=== PATIENT | female | born 1945 | race Two or more races ===

== ENCOUNTER 2021-11-18 09:52 | Day surgery (SDC) | payer OTHER | END 2021-11-18 14:10 | disposition home or self-care (01) | LOC: AMB-ENDOS 09:52 | PROVIDERS: ATTEND Colon & Rectal Surgery | DX: K57.20 Diverticulitis of large intestine with perforation and abscess without bleeding (principal); Z93.3 Colostomy status; K64.4 Residual hemorrhoidal skin tags ==

== ENCOUNTER 2022-01-20 09:15 | Inpatient (IN) | payer OTHER ==
[~2022-01-20] VITALS: Ht 152.4 cm; Wt 58.5 kg
[2022-01-20] MEDS ORDERED: SYNTHR PO (12:29)
[2022-01-20] MEDS ORDERED: LISI PO (12:29)
[2022-01-20] MEDS ORDERED: PROAIR RESPICL90 MCG IH (12:30)
[2022-01-20] MEDS ORDERED: PROBIOT PO (12:30)
[2022-02-09] MEDS ORDERED: LEVO-T25 MCG PO (15:28)
[2022-02-09] MEDS ORDERED: PROBIOTIC250 MG PO (15:29)
[2022-02-09] MEDS ORDERED: ZESTRIL20 MG PO (15:29)
== END 2022-02-12 14:19 | disposition home or self-care (01) | DRG 330 ==
LOC: SURH 01-26 09:15 → SURG 02-09 11:46 → O/R 02-09 11:46 → SURG 02-09 18:37
PROVIDERS: ADMIT Colon & Rectal Surgery; ATTEND Colon & Rectal Surgery
PROC: 0DBP4ZZ Excision of Rectum, Percutaneous Endoscopic Approach (ICD-10-PCS; 2022-02-09)
PROC: 0DQ84ZZ Repair Small Intestine, Percutaneous Endoscopic Approach (ICD-10-PCS; 2022-02-09)
PROC: 0WQF4ZZ Repair Abdominal Wall, Percutaneous Endoscopic Approach (ICD-10-PCS; 2022-02-09)
PROC: 0DBL4ZZ Excision of Transverse Colon, Percutaneous Endoscopic Approach (ICD-10-PCS; 2022-02-09)
PROC: 0DTN4ZZ Resection of Sigmoid Colon, Percutaneous Endoscopic Approach (ICD-10-PCS; principal; 2022-02-09 12:15)
DX: K57.30 Diverticulosis of large intestine without perforation or abscess without bleeding (principal); K92.1 Melena; I10 Essential (primary) hypertension; E03.8 Other specified hypothyroidism; R59.0 Localized enlarged lymph nodes; Z20.822 Contact with and (suspected) exposure to COVID-19

== ENCOUNTER 2022-02-09 09:45 | Outpatient (CLI) | payer OTHER ==
[~2022-02-09 09:45] MED LIST: LISI PO; PROAIR RESPICL90 MCG IH; PROBIOT PO; SYNTHR PO
[2022-02-09] MEDS ORDERED: LEVO-T25 MCG PO (15:28)
[2022-02-09] MEDS ORDERED: ZESTRIL20 MG PO (15:29)
[2022-02-09] MEDS ORDERED: PROBIOTIC250 MG PO (15:29)
== END 2022-02-09 09:49 | disposition home or self-care (01) ==
LOC: LAB 09:45
PROVIDERS: ATTEND Surgery
DX: Z03.818 Encounter for observation for suspected exposure to other biological agents ruled out (principal)

== ENCOUNTER 2022-02-20 18:42 | Emergency (ER) | payer OTHER ==
[~2022-02-20] VITALS: Ht 152.4 cm; Wt 59.0 kg
[~2022-02-20 18:42] MED LIST changes: +LEVO-T25 MCG PO; +PROBIOTIC250 MG PO; +ZESTRIL20 MG PO
== END 2022-02-20 22:52 | disposition home or self-care (01) ==
LOC: ER 18:42
DX: T85.9XXA Unspecified complication of internal prosthetic device, implant and graft, initial encounter (principal); E78.00 Pure hypercholesterolemia, unspecified; I10 Essential (primary) hypertension

== ENCOUNTER 2023-08-16 05:25 | Day surgery (SDC) | payer OTHER ==
[~2023-08-16 05:25] MED LIST changes: +CRESTOR10 MG PO; +GLUMETZA500 MG PO
[2023-08-16] MEDS ORDERED: MACROBID 100 M100 MG PO (10:05)
[2023-08-16] MEDS ORDERED: TRAM1TAB98 PO (10:06)
== END 2023-08-16 14:25 | disposition home or self-care (01) ==
LOC: CIR.AMB 05:25
PROVIDERS: ATTEND Obstetrics & Gynecology Gynecology
DX: N81.6 Rectocele (principal); N81.5 Vaginal enterocele; Z20.822 Contact with and (suspected) exposure to COVID-19

== ENCOUNTER 2024-08-24 09:52 | Inpatient (IN) | payer OTHER ==
[~2024-08-24] VITALS: Ht 165.1 cm; Wt 68.9 kg
[~2024-08-24 09:52] MED LIST changes: +MACROBID 100 M100 MG PO; +TRAM1TAB98 PO
[2024-08-24] MEDS ORDERED: ROSUVASTATIN CA20 MG (10:18)
[2024-08-28] MEDS ORDERED: METRONIDAZOLE/SODIUM CHLORIDE 500 MG/100 ML PIGGYBACK IV ONE (10:30)
[2024-08-28] MEDS ORDERED: BUPIVACAINE HCL 30 ML VIAL IJ ONE (10:30)
[2024-08-28] MEDS ORDERED: CEFTRIAXONE SODIUM 2,000 MG VIAL IV ONE (10:30)
[2024-08-28] MEDS ORDERED: ONDANSETRON HCL 2 MG/ML VIAL IV PRN (11:15)
[2024-08-28] MEDS ORDERED: OxyCODONE HCL 5 MG TABLET (ROXICODONE) PO PRN (11:15)
[2024-08-28] MEDS ORDERED: MORPHINE SULFATE 4 MG/ML CARTRIDGE IV PRN (11:15)
[2024-08-28] MEDS ORDERED: DEXTROSE 50 % IN WATER 0.5 G/ML DISP.SYRIN IV PRN (11:15)
[2024-08-28] MEDS ORDERED: RINGERS SOLUTION,LACTATED 1,000 ML IV SCH (11:15)
[2024-08-28] MEDS ORDERED: HYOSCYAMINE SULFATE 0.125 MG TAB.SUBL SL SCH (13:00)
[2024-08-28 13:31] LABS: HEMATOCRIT 37.3 % (36.0-45.00); HEMOGLOBIN 12.4 g/dL (12.0-15.00); MEAN CELL VOLUME 85.4 fL (80.00-100.00); MEAN CORPUSCULAR HEMOGLOBIN 28.4 pg (27.00-32.0); MEAN CORPUSCULAR HGB CONC 33.2 g/dl (32.0-36.0); PLATELET COUNT 174 K/uL (150-450); RED BLOOD COUNT 4.37 M/uL (4.00-6.00); RED CELL DISTRIBUTION WIDTH 14.1 % (11.5-14.5)
[2024-08-28] MEDS ORDERED: ACETAMINOPHEN 500 MG GEL..CAP PO SCH (14:00)
[2024-08-28] MEDS ORDERED: MORPHINE SULFATE 2 MG/ML CARTRIDGE IV ONE (14:10)
[2024-08-28 14:14] LABS: ALBUMIN 3.6 gm/dL (3.4-5.0); CALCIUM 8.9 mg/dL (8.5-10.1); CREATININE SERUM 0.76 mg/dL (0.55-1.02); GFR 73.79; PHOSPHOROUS 4.8 mg/dL (2.5-4.9); POTASSIUM 3.72 mEq/L (3.5-5.1)
[2024-08-28 16:44] VITALS: BP 93/57; O2SAT 96
[2024-08-28] MEDS ORDERED: POLYETHYLENE GLYCOL 3350 17 GM BLIST.PACK PO SCH (17:00)
[2024-08-28] MEDS ORDERED: GABAPENTIN 300 MG CAPSULE PO SCH (17:00)
[2024-08-28] MEDS ORDERED: FAMOTIDINE/PF 20 MG/2 ML VIAL IV PUSH SCH (21:00)
[2024-08-29] VITALS: BP 80/50; O2SAT 89
[2024-08-29 00:15] VITALS: BP 88/51; O2SAT 90
[2024-08-29 01:50] VITALS: BP 98/51; O2SAT 95
[2024-08-29 06:31] LABS: HEMATOCRIT 31.3 % (36.0-45.00); HEMOGLOBIN 10.8 g/dL (12.0-15.00); MEAN CELL VOLUME 83.6 fL (80.00-100.00); MEAN CORPUSCULAR HGB CONC 34.7 g/dl (32.0-36.0); RED BLOOD COUNT 3.74 M/uL (4.00-6.00)
[2024-08-29 07:03] LABS: ALBUMIN 2.8 gm/dL (3.4-5.0); CALCIUM 8.3 mg/dL (8.5-10.1); CREATININE SERUM 0.79 mg/dL (0.55-1.02); GFR 70.57; MAGNESIUM 1.8 mg/dL (1.8-2.4); PHOSPHOROUS 3.6 mg/dL (2.5-4.9); POTASSIUM 3.6 mEq/L (3.5-5.1)
[2024-08-29 07:04] LABS: PLATELET COUNT 124 K/uL (150-450)
[2024-08-29 09:16] VITALS: BP 120/70; O2SAT 96
[2024-08-29] MEDS ORDERED: DEXTROSE 50 % IN WATER 0.5 G/ML DISP.SYRIN IV PRN (14:45)
[2024-08-29] MEDS ORDERED: INSULIN LISPRO 1,000 UNIT/10 ML UNITS SUBCUTANEO PRN (14:45)
[2024-08-29 16:00] VITALS: BP 138/65; O2SAT 96
[2024-08-29] MEDS ORDERED: ENOXAPARIN SODIUM 40 MG/0.4 ML SYRINGE SUBCUTANEO SCH (17:00)
[2024-08-30 00:39] VITALS: BP 90/53; O2SAT 96
[2024-08-30 08:00] VITALS: BP 109/72; O2SAT 97
[2024-08-30] MEDS ORDERED: ENOXAPARIN SODIUM 40 MG/0.4 ML SYRINGE SUBCUTANEO SCH (09:00)
[2024-08-30 16:36] VITALS: BP 104/68; O2SAT 96
[2024-08-31] VITALS: BP 104/65; O2SAT 95
[2024-08-31 08:41] VITALS: BP 101/68; O2SAT 95
[2024-08-31] MEDS ORDERED: INTESTINEX680 M1 PO (12:57)
[2024-08-31] MEDS ORDERED: A/F PAIN RELIE500 MG PO (12:58)
[2024-08-31] MEDS ORDERED: NEURONTIN300 MG PO (12:59)
== END 2024-08-31 14:25 | disposition home or self-care (01) | DRG 331 ==
LOC: SURG 08-28 05:30 → O/R 08-28 05:30 → SURG 08-28 09:30
PROVIDERS: ADMIT Surgery; ATTEND Surgery
PROC: 07BB4ZZ Excision of Mesenteric Lymphatic, Percutaneous Endoscopic Approach (ICD-10-PCS; 2024-08-28)
PROC: 0DTF4ZZ Resection of Right Large Intestine, Percutaneous Endoscopic Approach (ICD-10-PCS; principal; 2024-08-28 09:30)
DX: C18.0 Malignant neoplasm of cecum (principal); R59.0 Localized enlarged lymph nodes